=== PATIENT | female | born 1940 | race Caucasian/White ===

== ENCOUNTER 2017-01-13 22:20 | Emergency (ER) | payer MEDICARE ==
[~2017-01-13] VITALS: Ht 152.4 cm; Wt 54.0 kg
[2017-01-13 22:28] VITALS: BP 156/83; RESP 20; O2SAT 98
--- NOTE | 2017-01-13 23:38 | ED.REPORT ---
HPI-General Illness Date of Service Jan 13, 2017 ED Provider: Mike Byers MD Patient is a 76 year old female with a hx of asthma who presents to the ED complaining of R sided tongue swelling. She was on 3-4 puffs of inhaled steroids for some time which led to thrush. She was prescribed Nystatin, which she is used for the past three months, and has now developed tongue swelling. Associated symptoms include subjective hoarseness of her voice which she states is associated with the inhaled steroid use. Her hoarseness is not changed with the onset of the tongue swelling. She denies fever, trouble breathing, wheezing , lip swelling, itching, rash, or any other symptoms. She rinses her mouth after using her inhaled steroids and cleans her spacer regularly. Nursing Notes Stated Complaint: TOUNGE SWELLING Chief Complaint: ENT & Mouth Nursing Notes Reviewed: Yes Allergies: Coded Allergies: Arnica (Arnica [place]) (Verified Allergy, Unknown, palpatations, 04/03/16) lidocaine (Verified Allergy, Unknown, passed out, 04/03/16) oxymetazoline (Verified Allergy, Unknown, Dizziness, 04/03/16) Scheduled Famotidine (Pepcid) 20 Mg Tablet 20 MG PO BID Loratadine (Claritin) 10 Mg Capsule 10 MG PO DAILY General Time Seen by MD: 23:38 Chief Complaint Other (Tongue swelling ) Hx Obtained From: Patient Arrived By: Walk-in Sudden in Onset?: Yes Onset Occurred: Onset unknown Recent Healthcare: Recent doctor visit Past Medical History Past Medical History arthritis Reports: Asthma Past Surgical History Hip replacement Smoking History Smoker Current Status UNK Social History Alcohol Use: Denies alcohol use Drug Use: Denies drug use Ambulatory Status Independent Review of Systems -lip swelling Full Review of Systems Constitutional: Denies: Fever Ears / Nose / Throat: Reports: Tongue swelling, Voice change Respiratory: Denies: Shortness of breath, Wheezing Allergy / Immune: Denies: Hives, Itching Complete sys rev & neg: except as marked. Physical Exam Vital Signs Vital Signs Date Time Temp Pulse Resp B/P Pulse Ox O2 Delivery O2 Flow Rate FiO2 01/14/17 00:52 36.2 60 16 124/65 97 Room Air 01/13/17 22:28 36.2 62 20 156/83 98 Room Air Initial VS: Reviewed Head / Eyes: Atraumatic, Normocephalic Neck: Full range of motion Respiratory: Breath sounds normal, Clear to auscultation, No respiratory distress Cardiovascular: Regular rate & rhythm, Heart sounds normal, Intact distal pulses Skin: Dry Neurologic: Alert, Oriented, Nonfocal Psychiatric: Mood/affect normal, Behavior normal, Normal thought content General/Constitutional: Awake, Alert, No acute distress, Well developed ENT: Airway patent Coated tongue, no obvious swelling Skin: Color NL, No rash, Warm, Dry Re-Eval/Medical Decision Med Decision/Clinical Course 76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 She may well developed contact allergy to the nystatin or one of the components of her nystatin liquid. Advised to discontinue that. She was given Claritin. She refused Benadryl until she gets home to avoid being sleepy. Decadron once now and once in the morning. Pepcid twice a day while on Claritin. Discontinue nystatin. Follow-up with PCP. No indication for additional antifungals at this time. Prompt return here if worsening despite treatment. Time of Eval: 00:30 Re-Evaluation/Progress Note: Discussed plan for discharge. Patient understands and agrees with plan. All questions addressed at this time. Counseled Regarding: Diagnosis, Need for follow-up, When/why to return to ED Discharge & Departure Primary Impression: Allergic angioedema Encounter type: initial encounter Qualified Code: T78.3XXA - Angioneurotic edema, initial encounter Disposition: Home Discharge Condition All VS Reviewed: Yes Condition: Improved Additional Instructions: Begin Claritin daily for ten days. Begin Pepcid twice daily for ten days. Taken additional dose of Decadron morning tomorrow. Continue your inhaled steroids as directed. You may use saline rinses as before. Follow-up with your doctor in the office. Return here promptly if swelling progresses despite treatment. I would assume that you are allergic to nystatin or some element in the nystatin suspension. Discontinue use of nystatin. Referrals: Jorge Salinas MD (PCP) Scribe Attestation Portions of this note were transcribed by Roxi Lomeli. I, Dr. Byers personally performed the history, physical exam and medical decision-making; I reviewed and confirmed the accuracy of the information in the transcribed note. Signed by: Roxi Lomeli 01/14/2017, 0144 copies to: Jorge Salinas MD, Christopher W MD Jan 13, 2017 23:38 ROXI LOMELI Jan 13, 2017 23:47
[2017-01-13] MEDS ORDERED: Dexamethasone 20 mg/2 mL Oral Solution PO ONE (23:50)
[2017-01-13] MEDS ORDERED: diphenhydrAMINE 25 mg Capsule PO ONE (23:50)
[2017-01-13] MEDS ORDERED: FAMO20T PO (23:53)
[2017-01-13] MEDS ORDERED: LORA10CA PO (23:53)
[2017-01-14 00:52] VITALS: BP 124/65; PULSE 60; RESP 16; O2SAT 97
== END 2017-01-14 00:52 | disposition home or self-care (01) ==
LOC: SED 22:20
DX: T78.3XXA Angioneurotic edema, initial encounter (principal); T36.7X5A Adverse effect of antifungal antibiotics, systemically used, initial encounter; Z88.8 Allergy status to other drugs, medicaments and biological substances; Y93.9 Activity, unspecified; Y92.9 Unspecified place or not applicable; Y99.8 Other external cause status